=== PATIENT | female | born 1970 | race Hispanic/Latino ===

== ENCOUNTER 2019-04-06 10:58 | Emergency (ER) | payer SELFPAY ==
[2019-04-06] MEDS ORDERED: BACTRIM DS1 TAB PO (12:23)
[2019-04-06] MEDS ORDERED: VOLTAREN - GENE75 MG PO (12:23)
[2019-04-06 12:35] VITALS: BP 159/94
== END 2019-04-06 12:35 | disposition home or self-care (01) | DRG 603 ==
LOC: ED 10:58
DX: L02.811 Cutaneous abscess of head [any part, except face] (principal)